=== PATIENT | female | born 1965 | race Two or more races ===

== ENCOUNTER → 2017-01-17 08:17 | Emergency (ER) | payer MEDICAID ==
[~2017-01-17] VITALS: Ht 160 cm; Wt 72.6 kg
[~2017-01-17 08:17] MED LIST: ALBUTEROL SULF 2.5 MG/0.5ML(0.5%) NEB SOLN NEB ONE; IPRATROPIUM BROM 0.5 MG/2.5ML INH SOL NEB ONE; SODIUM CHLORIDE 0.9% 1,000 ML IV ONE; methylPREDNISolone SOD SUCC 125 MG/2 ML VL IV ONE
[2017-01-17 09:35] LABS: Basophils # (auto) 0 uL; Basophils % (auto) 0.6 % (0.0-2.0); CONDITION Y; Eosinophils # (auto) 0.5 uL; Eosinophils % (auto) 6.7 % (0.0-7.0); Hematocrit 42.6 % (36.0-46.0); Hemoglobin 14.5 g/dL (12.2-16.2); Lymphocytes # (auto) 2.3 uL; Lymphocytes % (auto) 28.5 % (10.0-50.0); Mean Corpuscular Hemoglobin 30.8 pg (28.0-32.0); Mean Corpuscular Hgb Conc. 33.9 g/dL (32.0-36.0); Mean Corpuscular Volume 90.9 fL (80.0-100.0); Monocytes # (auto) 0.4 uL; Monocytes % (auto) 5.4 % (0.0-12.0); Neutrophils # (auto) 4.7 uL; Neutrophils % (auto) 58.8 % (37.0-80.0); Platelet Count (auto) 326 10^3/uL (140-450); Red Cell Distribution Width 13.1 % (11.6-16.0)
[2017-01-17 10:02] LABS: Albumin 4.1 g/dL (3.4-5.0); Alkaline Phosphatase 168 U/L (45-117); Anion Gap 9 (5-15); Aspartate Aminotransferase 22 U/L (15-37); BUN/Creatinine Ratio 22.2; Bilirubin, Total 0.3 mg/dL (0.2-1.0); Blood Urea Nitrogen 16 mg/dL (7-18); Calcium 8.7 mg/dL (8.5-10.1); Carbon Dioxide 24 mmol/L (21-32); Chloride 104 mmol/L (98-107); GFR African American 110 mL/min; GFR Non-African American 91 mL/min; Glucose 103 mg/dL (74-106); Potassium 3.9 mmol/L (3.5-5.1); Sodium 137 mmol/L (136-145)
[2017-01-17 11:50] VITALS: BP 134/83
[2017-01-17 12:01] LABS: Urine Bilirubin Negative (Negative); Urine Blood Negative /uL (Negative); Urine Color Colorless (Yellow); Urine Glucose Normal (Normal); Urine Ketone Negative (Negative); Urine Nitrite Negative (Negative); Urine RBC <1 /hpf (0 - 4); Urine Squamous Epithelial Cell FEW /hpf (<5); Urine Urobilinogen Normal (Negative)
== END | disposition home or self-care (01) ==
LOC: ER 08:17
DX: J45.21 Mild intermittent asthma with (acute) exacerbation (principal)
CPT/HCPCS: 36415; 71020; 80053; 81001; 83735; 84443; 84484; 85025; 93005; 94640; 94761; 96361; 96374; 99285; J2930; J7030